=== PATIENT | male | born 1970 | race Caucasian/White ===

== ENCOUNTER 2021-05-14 17:34 | Inpatient (IN) ==
--- NOTE | 2021-05-14 18:28 | Emergency Department Note ---
Extremity Problem HPI <Philomena Botello PA-C - Last Filed: 05/14/21 20:58> General Chief complaint: Extremity Problem,Nontraumatic Stated complaint: left calf pain Time Seen by Provider: 05/14/21 17:49 Source: patient Mode of arrival: ambulatory History of Present Illness HPI Narrative: 51-year-old male presents with persistent left lower extremity swelling, pain, and erythema x1 month. He had a knee x-ray on 04/25/21 that showed no significant osteoarthritis. He had a lower extremity venous duplex on 05/07/21 that was negative for VTE. A ruptured Ribera's cyst was noted. There was concern for cellulitis and the patient was placed on cephalexin. He's had no improvement. The left lower extremity pain and swelling was preceded by left knee pain and swelling. Patient reports that he has painful range of motion and difficulty with weightbearing due to pain. No previous surgeries to this knee. Patient karie so has a history of psoriasis, but reports that he was ruled out for psoriatic arthritis in the past. Of note, his CRP and sed rate were noted to be elevated on 04/25/2021 when he was initially evaluated for this. Related Data Home Medications Medication Instructions Recorded Confirmed ixekizumab 80 mg/mL subcutaneous mg SUBCUT 04/25/21 04/25/21 auto-injector (Taltz Autoinjector) Previous Rx's Medication Instructions Recorded naproxen 500 mg tablet 500 mg PO Q12H PRN #30 tab 04/25/21 cephalexin 500 mg capsule 500 mg PO Q6H #28 cap 05/07/21 Allergies Allergy/AdvReac Type Severity Reaction Status Date / Time No Known Drug Allergies Allergy Verified 05/14/21 17:34 Review of Systems <Philomena Botello PA-C - Last Filed: 05/14/21 20:58> ROS ROS Narrative: Narrative: All systems ED: reviewed and negative except as stated. PFSH <Philomena Botello PA-C - Last Filed: 05/14/21 20:58> Narrative Patient History Narrative: Narrative: Medical/Surgical/Family History All Active Problems Cellulitis (Acute) History of psoriasis (Acute) Knee pain, left (Acute) Pneumonia (Acute) Viral syndrome (Acute) Pharyngitis (Acute) Shortness of breath (Acute) Thoracic back pain (Acute) Medical History Amputation of right hand History of psoriasis Knee pain, left Pharyngitis Pneumonia Shortness of breath Viral syndrome Social History Smoking Status: Former smoker Alcohol Intake Frequency: does not drink Substance Use: does not use Exam <Philomena Botello PA-C - Last Filed: 05/14/21 20:58> Narrative Narrative: General: AOx3, NAD, nontoxic appearing. Pleasant and conversant. HEENT: PERRL, EOMI, normocephalic. Moist mucous membranes. Chest: Symmetric, no pain to palpation Respiratory: Lungs clear to auscultation bilaterally. No respiratory distress. Unlabored breathing. Heart: Regular rate and rhythm, no murmurs/clicks/rubs. Extremities: Warm and well perfused. Left lower extremity swelling with indurated area to the medial proximal gastroc and associated erythema. It is painful to palpation and warm to the touch. DP 2+ bilaterally. No venous stasis. He has a small left knee joint effusion. Neuro: No focal deficits. Cranial nerves II-XII grossly normal. Skin: Warm dry, no rashes or lesions, no cyanosis. Psych: Normal mood and affect Heme/Lymph: No abnormal bruising Course <Philomena Botello PA-C - Last Filed: 05/14/21 20:58> Course Course Narrative: 51-year-old male presents for failed outpatient antibiotics for left lower extre mity cellulitis. Reevaluation(s) Reevaluation #1: Obtain basic labs, repeat his CRP and sed rate Joint aspiration and send fluid for culture and cell count Obtain CT of the left lower extremity to query fluid collection, possible abscess Start IV vancomycin and Zosyn Reevaluation #2: CT of the left lower extremity shows a 12 cm x 6 cm fluid collection in the medial gastrocnemius. Cell counts are pending Laboratory markers have increased significantly with CRP 2.1-->13 and ESR 22-->79 Patient has elevated white blood cell count of 12,200 Reevaluation #3: I spoke with Dr. Tobar, and he agrees that the patient should be started empirically on antibiotics and request that I order a ultrasound-guided aspiration of the LLE fluid collection tomorrow. Depending on synovial fluid analysis, he may need washout of the knee joint. He is asking to make him n.p.o. after midnight. There are no [facility] beds available tonight, so we will keep him in the ER and consult the hospitalist tomorrow for admission once a bed is available. I have ordered an ultrasound-guided aspiration. Vital Signs Vital signs: Vital Signs Temperature 37.3 C H 05/14/21 17:35 Pulse Rate 102 H 05/14/21 17:35 Respiratory Rate 20 05/14/21 17:35 Blood Pressure 158/81 05/14/21 17:35 Pulse Oximetry (%) 97 05/14/21 17:35 Temperature 37.3 C H 05/14/21 17:35 Pulse Rate 97 H 05/15/21 00:31 Respiratory Rate 20 05/14/21 17:35 Blood Pressure 120/72 05/15/21 00:31 Pulse Oximetry (%) 81 L 05/15/21 00:31 MDM <Philomena Botello PA-C - Last Filed: 05/14/21 20:58> [facility] Narrative Medical decision making narrative: Left lower extremity cellulitis, failed outpatient antibiotics The patient will remain in the ER tonight for IV antibiotics and n.p.o. after midnight for possible washout of his knee joint versus I&D of his left lower extremity fluid collection tomorrow. Ultrasound-guided aspiration has been ordered for tomorrow morning. Synovial fluid analysis and Gram stain is pending. Dr. Tobar has requested that the hospitalist admit once bed becomes available tomorrow morning. I signed the patient out to Dr. Jeffers. Please see his note for further details and plan of care. Lab Data Result diagrams: 05/14/21 18:06 Labs: Lab Results 05/14/21 05/14/21 05/14/21 Range/Units 18:06 18:06 18:06 WBC 12.2 H (4.5-11.0) K/mcL RBC 4.63 (4.63-6.08) M/mcL Hgb 13.3 L (13.7-17.5) g/dL Hct 40.9 (40.1-51.0) % MCV 88.3 (80.0-100.0) fL MCH 28.7 (26.0-34.0) pg MCHC 32.5 (31.0-36.0) g/dL RDW 13.1 (11.5-14.5) % Plt Count 348 (140-440) K/mcL MPV 10.0 (7.4-10.4) fL Seg Neutrophils % 77 (38-78) % Lymphocytes % 14 L (15-49) % Monocytes % (Manual) 8 (1-12) % Eosinophils % (Manual) 1 (0-7) % Platelet Estimate Normal (Normal) RBC Morphology Normal (Normal) ESR 79 H (0-20) mm/hr C-Reactive Protein 13.20 H (0.03-0.80) mg/dL Fluid Crystals (None Seen) Synovial Source Synovial Color Synovial Appearance Synovial Nuc Cells /cumm Synovial Neutrophils (0-25) % Synovial Lymphocytes % Synovial Other Cells % 05/14/21 05/14/21 Range/Units 18:19 20:01 WBC (4.5-11.0) K/mcL RBC (4.63-6.08) M/mcL Hgb (13.7-17.5) g/dL Hct (40.1-51.0) % MCV (80.0-100.0) fL MCH (26.0-34.0) pg MCHC (31.0-36.0) g/dL RDW (11.5-14.5) % Plt Count (140-440) K/mcL MPV (7.4-10.4) fL Seg Neutrophils % (38-78) % Lymphocytes % (15-49) % Monocytes % (Manual) (1-12) % Eosinophils % (Manual) (0-7) % Platelet Estimate (Normal) RBC Morphology (Normal) ESR (0-20) mm/hr C-Reactive Protein (0.03-0.80) mg/dL Fluid Crystals None seen (None Seen) Synovial Source Left knee Synovial Color Red Synovial Appearance Cloudy Synovial Nuc Cells 04698 /cumm Synovial Neutrophils 89 H (0-25) % Synovial Lymphocytes 4 % Synovial Other Cells 7 % Discharge Plan Patient/Caregiver Discharge Instructions Pt seen by BLOCK TRIMMER/PA only: No Patient Disposition: Still a Patient Condition: Fair Follow up with: Hawa Seymour PA-C [Primary Care Provider] - Prescriptions: No Action Taltz Autoinjector 80 mg/mL auto-injector subcut 0RF naproxen 500 mg tablet 500 mg PO Q12H PRN (Reason: pain) Qty: 30 0RF Rx Instructions: administer with food or milk cephalexin 500 mg capsule 500 mg PO Q6H Qty: 28 0RF
[2021-05-14 18:41] LABS: Hematocrit 40.9 % (40.1-51.0); Hemoglobin 13.3 g/dL (13.7-17.5); Mean Cell Volume 88.3 fL (80.0-100.0); Mean Corpuscular HGB Conc 32.5 g/dL (31.0-36.0); Platelet Count 348 K/mcL (140-440); RBC 4.63 M/mcL (4.63-6.08); Red Cell Distribution Width 13.1 % (11.5-14.5); WBC 12.2 K/mcL (4.5-11.0)
--- NOTE | 2021-05-14 18:52 | Cat Scan Report ---
CLINICAL INFORMATION: Erythematous lower leg COMPARISON: None TECHNIQUE: 0.625 mm axial slices were obtained from the distal one third of the femur through the catheter including the foot and ankle.. 2.5 mm Sagittal, coronal and axial reformatted images were processed and reviewed at bone and soft tissue tissue windows. Leak The exam was performed using radiation dose optimization techniques including, but not limited to, automated exposure control, adjustment of the mA and/or kV according to patient size and use of iterative reconstruction technique. FINDINGS: There is no evidence of osteomyelitis or other osseous abnormality. Small effusion is noted in the patellofemoral joint. There is mild degenerative change in the medial compartment of tibiofemoral joint. Joint spaces of the ankle and feet are unremarkable. A large (6.2 x 12 cm) fluid collection is seen adjacent to proximal medial gastrocnemius deep to the investing fascia. Minimal wispy high attenuation inferiorly within this region may represent resolving hematoma. Muscle and fascial planes are otherwise normal. IMPRESSION: 1. 12 x 6 cm fluid collection in the upper medial calf adjacent to the medial gastrocnemius and deep to the investing fascia. This could represent a resolving hematoma. 2. Small effusion in the patellofemoral joint Interpreted and Authenticated by: David Hunt 05/14/21
[2021-05-14 19:27] LABS: Eosinophils % (Manual) 1 % (0-7); Lymphocytes % 14 % (15-49); Monocytes % (Manual) 8 % (1-12); Platelet Estimate NORMAL (Normal); RBC Morphology NORMAL (Normal); Segmented Neutrophils % 77 % (38-78)
[2021-05-14] MEDS ORDERED: VANCOMYCIN 2,000 MG in 0.9 % SODIUM CHLORIDE 500 ML IV ONE (20:10)
[2021-05-14] MEDS ORDERED: PIPERACILLIN SODIUM/TAZOBACTAM 3.375 GM in DEXTROSE 5% IN WATER 50 ML IV ONE (20:39)
[2021-05-14 21:28] LABS: Appearance,Synovial Fluid Cloudy; Color,Synovial Fluid Red; Lymphocytes,Synovial Fluid 4 %; Neutrophils,Synovial Fluid 89 % (0-25); Nucleated Cells,Synovial Fld 13838 /cumm; Other Cells,Synovial Fluid 7 %
--- NOTE | 2021-05-14 22:38 | Emergency Department Note ---
Course Vital Signs Vital signs: Vital Signs Temperature 37.3 C H 05/14/21 17:35 Pulse Rate 102 H 05/14/21 17:35 Respiratory Rate 20 05/14/21 17:35 Blood Pressure 158/81 05/14/21 17:35 Pulse Oximetry (%) 97 05/14/21 17:35 Temperature 37.3 C H 05/14/21 17:35 Pulse Rate 97 H 05/15/21 00:31 Respiratory Rate 20 05/14/21 17:35 Blood Pressure 120/72 05/15/21 00:31 Pulse Oximetry (%) 81 L 05/15/21 00:31 MDM MDM Narrative Medical decision making narrative: Narrative:Patient seen and evaluated by VANESSA who also consulted with orthopedics please refer to the APPnote For full details. Signed out to me while boarding in the ED tonight Knee arthrocentesis fluid shows Preliminary Gram stain no organism but does show moderate polys Fluid analysis does show red cloudy appearing fluid with 13,000 cells 89 % neutrophils He is already n.p.o. at midnight, he is already received broad-spectrum antibiotics and is waiting admission in the morning as well as a fine-needle guided aspiration of his calf and orthopedic evaluation for possible I&D and/or washout of calf / knee Continue current mgt. Will be signed out to Dr. Perez Lab Data Result diagrams: 05/14/21 18:06 Labs: Lab Results 05/14/21 05/14/21 05/14/21 Range/Units 18:06 18:06 18:06 WBC 12.2 H (4.5-11.0) K/mcL RBC 4.63 (4.63-6.08) M/mcL Hgb 13.3 L (13.7-17.5) g/dL Hct 40.9 (40.1-51.0) % MCV 88.3 (80.0-100.0) fL MCH 28.7 (26.0-34.0) pg MCHC 32.5 (31.0-36.0) g/dL RDW 13.1 (11.5-14.5) % Plt Count 348 (140-440) K/mcL MPV 10.0 (7.4-10.4) fL Seg Neutrophils % 77 (38-78) % Lymphocytes % 14 L (15-49) % Monocytes % (Manual) 8 (1-12) % Eosinophils % (Manual) 1 (0-7) % Platelet Estimate Normal (Normal) RBC Morphology Normal (Normal) ESR 79 H (0-20) mm/hr C-Reactive Protein 13.20 H (0.03-0.80) mg/dL Fluid Crystals (None Seen) Synovial Source Synovial Color Synovial Appearance Synovial Nuc Cells /cumm Synovial Neutrophils (0-25) % Synovial Lymphocytes % Synovial Other Cells % 05/14/21 05/14/21 Range/Units 18:19 20:01 WBC (4.5-11.0) K/mcL RBC (4.63-6.08) M/mcL Hgb (13.7-17.5) g/dL Hct (40.1-51.0) % MCV (80.0-100.0) fL MCH (26.0-34.0) pg MCHC (31.0-36.0) g/dL RDW (11.5-14.5) % Plt Count (140-440) K/mcL MPV (7.4-10.4) fL Seg Neutrophils % (38-78) % Lymphocytes % (15-49) % Monocytes % (Manual) (1-12) % Eosinophils % (Manual) (0-7) % Platelet Estimate (Normal) RBC Morphology (Normal) ESR (0-20) mm/hr C-Reactive Protein (0.03-0.80) mg/dL Fluid Crystals None seen (None Seen) Synovial Source Left knee Synovial Color Red Synovial Appearance Cloudy Synovial Nuc Cells 15436 /cumm Synovial Neutrophils 89 H (0-25) % Synovial Lymphocytes 4 % Synovial Other Cells 7 % Discharge Plan Patient/Caregiver Discharge Instructions Pt seen by RISK MANAGEMENT CONSULTANT/PA only: No Patient Disposition: Still a Patient Condition: Fair Follow up with: Hawa Seymour PAMunaC [Primary Care Provider] - Prescriptions: No Action Taltz Autoinjector 80 mg/mL auto-injector subcut 0RF naproxen 500 mg tablet 500 mg PO Q12H PRN (Reason: pain) Qty: 30 0RF Rx Instructions: administer with food or milk cephalexin 500 mg capsule 500 mg PO Q6H Qty: 28 0RF
[2021-05-15] MEDS ORDERED: VANCOMYCIN PER PHARMACY IV ONE ×2 (02:52→15:10)
[2021-05-15] MEDS: PIPERACILLIN SODIUM/TAZOBACTAM 3.375 GM in DEXTROSE 5% IN WATER 50 ML IV SCH ×2 (03:58→10:15)
--- NOTE | 2021-05-15 06:38 | Orthopedic Consult Note ---
HPI Data of Consult Consult date: 05/15/21 Primary Care Provider: Hawa Seymour PA-C Consult Narrative Patient Information: Note initiated : 05/15/21 at 6:34 am Service Date, if different from initiated Date: [] Patient: Maged Bennett 51 y/o M admitted on for left calf pain. Chief Complaint: [Left leg pain, abscess ] Chief complaint: left lower leg pain, abscess cc:: CC: Review of Systems All systems: reviewed and no additional remarkable complaints except as stated PFSH PFSH All Active Problems Cellulitis (Acute) History of psoriasis (Acute) Knee pain, left (Acute) Pneumonia (Acute) Viral syndrome (Acute) Pharyngitis (Acute) Shortness of breath (Acute) Thoracic back pain (Acute) Medical History Amputation of right hand History of psoriasis Knee pain, left Pharyngitis Pneumonia Shortness of breath Viral syndrome Social History alcohol intake frequency: does not drink substance use type: does not use MEDS/ALLERGIES Home Medications and Allergies Home Medications Medication Instructions Recorded Confirmed Type ixekizumab 80 mg/mL subcutaneous mg SUBCUT 04/25/21 04/25/21 History auto-injector (Taltz Autoinjector) naproxen 500 mg tablet 500 mg PO Q12H PRN #30 tab 04/25/21 04/25/21 Rx cephalexin 500 mg capsule 500 mg PO Q6H #28 cap 05/07/21 Rx Allergies Allergy/AdvReac Type Severity Reaction Status Date / Time No Known Drug Allergies Allergy Verified 05/14/21 17:34 Physical Examination Narrative Narrative: Narrative: A/P Narrative A/P Narrative: Patient is a 51 yo male local resident employed by [employer] under the care of primary Jazz Felix with 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 He was previously seen and evaluated on Apr 06 and received a LLE venous US which resulted negative for DVT but demonstrated a possible ruptured bakers cyst. He denies SOB, chest pain, N+V, change in bowel habits. He does endorse mild subjective fever. Workup at this visit to the [facility] ED included left knee aspiration, LLE CT w/o contrast and blood work. [place]throcentesis [place] [address] and 89% neutrophils. CBC is remarkable for WBC of 12.2 and CRP of 13 and ESR of 79. CT revealed a fluid collection medial to left gastroc muscle. He has also been started on vancomycin and Zosyn empirically. US guided percutaneous drainage of LLE fluid collection has been ordered. On exam patient is resting comfortably in ER bed. He is arousable cooperative and answers questions appropriately. Heart is normal rate and rhythm, lungs are equal and clear bilat. Head, neck, chest, abd are non tender to palpation. At the LLE there is tenderness, moderate swelling at the lower calf and a mild knee joint effusion. Plan at this time depending on further lab and radiology workup is for possible arthroscopic washout of the left knee adn also possible I+D of LLE fluid collection. This plan was discussed with the patient and his questions were answered, he verbalizes understanding. Time Spent With Patient Time: Total time spent is greater than 50% in coordination of care (as documented) at patient's floor/unit and/or counseling patient:
--- NOTE | 2021-05-15 09:53 | Emergency Department Note ---
Course Course Course Narrative: I assumed care from Dr. Jeffers at the change of shift. I evaluated the patient in person at 8:30 AM. He has mild tenderness to palpation of his lower left leg. He has slightly limited range of motion at the knee Vital Signs Vital signs: Vital Signs Temperature 99.1 F H 05/14/21 17:35 Pulse Rate 102 H 05/14/21 17:35 Respiratory Rate 20 05/14/21 17:35 Blood Pressure 158/81 05/14/21 17:35 Pulse Oximetry (%) 97 05/14/21 17:35 Temperature 97.4 F 05/15/21 10:28 Pulse Rate 81 05/15/21 12:31 Respiratory Rate 20 05/14/21 17:35 Blood Pressure 122/70 05/15/21 12:31 Pulse Oximetry (%) 95 05/15/21 12:31 MDM MDM Narrative Medical decision making narrative: Narrative: Lab Data Result diagrams: 05/14/21 18:06 Labs: Lab Results 05/14/21 05/14/21 05/14/21 Range/Units 18:06 18:06 18:06 WBC 12.2 H (4.5-11.0) K/mcL RBC 4.63 (4.63-6.08) M/mcL Hgb 13.3 L (13.7-17.5) g/dL Hct 40.9 (40.1-51.0) % MCV 88.3 (80.0-100.0) fL MCH 28.7 (26.0-34.0) pg MCHC 32.5 (31.0-36.0) g/dL RDW 13.1 (11.5-14.5) % Plt Count 348 (140-440) K/mcL MPV 10.0 (7.4-10.4) fL Seg Neutrophils % 77 (38-78) % Lymphocytes % 14 L (15-49) % Monocytes % (Manual) 8 (1-12) % Eosinophils % (Manual) 1 (0-7) % Platelet Estimate Normal (Normal) RBC Morphology Normal (Normal) ESR 79 H (0-20) mm/hr C-Reactive Protein 13.20 H (0.03-0.80) mg/dL Fluid Crystals (None Seen) Synovial Source Synovial Color Synovial Appearance Synovial Tot Cell Ct Synovial Nuc Cells /cumm Synovial Neutrophils (0-25) % Synovial Lymphocytes % Synovial Other Cells % Synovial Diff Comment 05/14/21 05/14/21 05/15/21 Range/Units 18:19 20:01 10:15 WBC (4.5-11.0) K/mcL RBC (4.63-6.08) M/mcL Hgb (13.7-17.5) g/dL Hct (40.1-51.0) % MCV (80.0-100.0) fL MCH (26.0-34.0) pg MCHC (31.0-36.0) g/dL RDW (11.5-14.5) % Plt Count (140-440) K/mcL MPV (7.4-10.4) fL Seg Neutrophils % (38-78) % Lymphocytes % (15-49) % Monocytes % (Manual) (1-12) % Eosinophils % (Manual) (0-7) % Platelet Estimate (Normal) RBC Morphology (Normal) ESR (0-20) mm/hr C-Reactive Protein (0.03-0.80) mg/dL Fluid Crystals None seen (None Seen) Synovial Source Left knee TNP Synovial Color Red TNP Synovial Appearance Cloudy TNP Synovial Tot Cell Ct TNP Synovial Nuc Cells 82995 TNP /cumm Synovial Neutrophils 89 H TNP (0-25) % Synovial Lymphocytes 4 TNP % Synovial Other Cells 7 TNP % Synovial Diff Comment TNP ED POC Tests ED POC Tests: GANESH - SARS Antigen Negative Discharge Plan Patient/Caregiver Discharge Instructions Pt seen by SCHOOL COUNSELOR/PA only: No Clinical Impression: Cellulitis of knee, left Patient Disposition: Xfer As Inpt ([facility]) Condition: Fair Follow up with: Hawa Seymour PAMunaC [Primary Care Provider] - Prescriptions: No Action Taltz Autoinjector 80 mg/mL auto-injector subcut 0RF naproxen 500 mg tablet 500 mg PO Q12H PRN (Reason: pain) Qty: 30 0RF Rx Instructions: administer with food or milk cephalexin 500 mg capsule 500 mg PO Q6H Qty: 28 0RF
--- NOTE | 2021-05-15 10:51 | Ultrasound Report ---
Ultrasound-guided drainage of fluid collection in the medial calf Clinical history: Spontaneous postoperative fluid collection developing over the medial gastrocnemius. Mild erythema Technique: The procedure and risks including possibility of bleeding, infection and inadequate tissue sampling were explained to the patient. The understood and wished to proceed. The lesion was first internet researcher localized. The skin overlying the lesion was marked, prepped and locally anesthetized with 1% lidocaine using a 25-gauge needle. 18-gauge Yueh needle was placed under sonographic guidance into the fluid. Approximately 15 cc of hemorrhagic fluid was aspirated and sent for cell count and culture. Because viscosity of the blood, could only be partially drained. Postprocedure scanning shows the volume of the fluid collection approximately one half of the preprocedure volume. Post procedure scanning shows no complication. Patient tolerated procedure well. IMPRESSION: Partial percutaneous drainage of 12 cm hematoma in the medial calf overlying the medial gastrocnemius. Fluid was sent for cell count, culture and sensitivity. This should resolve with conservative therapy Interpreted and Authenticated by: David Hunt 05/15/21
--- NOTE | 2021-05-15 14:31 | Emergency Department Note ---
ED Note Addendum Note Addendum: I spoke with Dr. Maria regarding this patient's disposition. The plan is to admit him for IV antibiotics and orthopedics will consult regarding further evaluation of his left lower extremity cellulitis and possible need for I&D. Dr. Tobar is aware the patient is being admitted.
--- NOTE | 2021-05-15 14:57 | Internal Med History&Physical ---
HPI History of Present Illness Patient information: Note initiated : 05/15/21 at 2:54 pm Service Date, if different from initiated Date: [] Patient: Maged Bennett a 51 y/o M admitted on for left calf pain. Chief Complaint: [] Chief complaint: Left leg pain and redness History of present illness: Mr. Bennett is a 51 year old male with a history of psoriasis treated with Ixekizumab injections who presented to the ED for left calf pain. The patient says that he has been having redness and edema in his left calf for about 4 weeks. He has recently been on a course of Keflex which does not seem to have made any difference. The patient has been seen for this complaint in urgent care and the emergency department. In the ED, the patient had an aspiration of his left knee for which there were 13,838 nucleated cells with 89% neutrophils. The patient was also found to have a left calf fluid collection that was drained by radiology. The patient presented to the emergency department, the impression was that it was a hematoma in the medial calf overlying the medial gastrocnemius muscle. The patient was given vancomycin and Zosyn in the emergency department. Hospital medicine was consulted for admission. Review of system Constitutional: no fever, fatigue, or weight loss Eyes: no vision changes or pain Cardiovascular: no chest pain, no palpitations Respiratory: no cough or dyspnea Gastrointestinal: no abdominal pain, no nausea, vomiting, or diarrhea Genitourinary: no dysuria or difficulty voiding Musculoskeletal: Positive for left calf pain and left knee pain Integumentary: Positive for left calf warmth and redness Neurological: no focal weakness or numbness Psychiatric: no anxiety or depression Physical exam Head: Atraumatic, normal inspection. Eyes: normal appearance, no scleral icterus. Neck: full ROM Respiratory: no respiratory distress. Cardiovascular: normal rate and rhythm, S1, S2. GI/Abdominal: soft, nontender, no guarding. Extremities: Left calf edema, left knee tenderness to passive and active movement Neurological: CN II-XII intact, intact motor, intact sensation. Psychiatric: normal mood. Skin: Left Foot warmth and redness suggestive of cellulitis PFSH PFSH All Active Problems (Updated 05/15/21 @ 14:13 by Shade Perez DO) Cellulitis (Acute) Cellulitis of knee, left (Acute) History of psoriasis (Acute) Knee pain, left (Acute) Pneumonia (Acute) Viral syndrome (Acute) Pharyngitis (Acute) Shortness of breath (Acute) Thoracic back pain (Acute) Medical History Amputation of right hand History of psoriasis Knee pain, left Pharyngitis Pneumonia Shortness of breath Viral syndrome Social History alcohol intake frequency: does not drink substance use type: does not use MEDS/ALLERGIES Home Medications and Allergies Home Medications Medication Instructions Recorded Confirmed Type ixekizumab 80 mg/mL subcutaneous mg SUBCUT 04/25/21 04/25/21 History auto-injector (Taltz Autoinjector) naproxen 500 mg tablet 500 mg PO Q12H PRN #30 tab 04/25/21 05/15/21 Rx cephalexin 500 mg capsule 500 mg PO Q6H #28 cap 05/07/21 05/15/21 Rx Allergies Allergy/AdvReac Type Severity Reaction Status Date / Time No Known Drug Allergies Allergy Verified 05/14/21 17:34 EXAM Constitutional Vitals: Temp Pulse Resp BP Pulse Ox 97.4 F 80 20 134/66 96 05/15/21 10:28 05/15/21 14:32 05/14/21 17:35 05/15/21 14:01 05/15/21 14:32 DATA Data Completed and Pending Labs: Labs from last 24 hours 05/15/21 05/15/21 05/14/21 10:15 10:15 20:01 WBC RBC Hgb Hct MCV MCH MCHC RDW Plt Count MPV Seg Neutrophils % Lymphocytes % Monocytes % (Manual) Eosinophils % (Manual) Platelet Estimate RBC Morphology ESR C-Reactive Protein Fluid Source Pending Fluid Color Pending Fluid Appearance Pending Fluid RBC Pending Fluid Nucleated Cells Pending Fluid Crystals None seen Synovial Source TNP Synovial Color TNP Synovial Appearance TNP Synovial Tot Cell Ct TNP Synovial Nuc Cells TNP Synovial Neutrophils TNP Synovial Lymphocytes TNP Synovial Other Cells TNP Synovial Diff Comment TNP 05/14/21 05/14/21 05/14/21 18:19 18:06 18:06 WBC 12.2 H RBC 4.63 Hgb 13.3 L Hct 40.9 MCV 88.3 MCH 28.7 MCHC 32.5 RDW 13.1 Plt Count 348 MPV 10.0 Seg Neutrophils % 77 Lymphocytes % 14 L Monocytes % (Manual) 8 Eosinophils % (Manual) 1 Platelet Estimate Normal RBC Morphology Normal ESR 79 H C-Reactive Protein Fluid Source Fluid Color Fluid Appearance Fluid RBC Fluid Nucleated Cells Fluid Crystals Synovial Source Left knee Synovial Color Red Synovial Appearance Cloudy Synovial Tot Cell Ct Synovial Nuc Cells 35294 Synovial Neutrophils 89 H Synovial Lymphocytes 4 Synovial Other Cells 7 Synovial Diff Comment 05/14/21 18:06 WBC RBC Hgb Hct MCV MCH MCHC RDW Plt Count MPV Seg Neutrophils % Lymphocytes % Monocytes % (Manual) Eosinophils % (Manual) Platelet Estimate RBC Morphology ESR C-Reactive Protein 13.20 H Fluid Source Fluid Color Fluid Appearance Fluid RBC Fluid Nucleated Cells Fluid Crystals Synovial Source Synovial Color Synovial Appearance Synovial Tot Cell Ct Synovial Nuc Cells Synovial Neutrophils Synovial Lymphocytes Synovial Other Cells Synovial Diff Comment Preliminary micro results at discharge 05/15/21 10:15 Gram Stain - Preliminary Aspirate - Left Leg Body Fluid Culture - Preliminary 05/14/21 18:19 Gram Stain - Preliminary Synovial Fluid - Knee Body Fluid Culture - Preliminary A/P Narrative A/P Narrative: Assessment: 51-year-old male with a history of psoriasis treated with Ixekizumab injections admitted for left calf cellulitis, left calf hematoma possibly infected. The patient also had left knee pain for which an arthrocentesis was performed, cell count was 13,838 with 89% neutrophils. #Cellulitis of left calf #Left calf fluid collection, probably hematoma (infected?) #Concern for possible left knee septic arthritis #Psoriasis treated with Ixekizumab #Obesity BMI 33 Plan -Vancomycin and ceftriaxone for now. -Follow knee, left calf fluid collection aspiration and blood cultures. -Follow cell count of the left calf fluid collection. -Orthopedic surgery following. -Hold Ixekizumab. -Regular diet, NPO after midnight. -DVT ppx: Lovenox -Code status: Supervisor Cell Operation Spent With Patient Time: Total time spent is greater than 50% in coordination of care (as documented) at patient's floor/unit and/or counseling patient:
[2021-05-15] MEDS ORDERED: ONDANSETRON 4 MG/2 ML VIAL IV PRN (15:10)
[2021-05-15] MEDS ORDERED: ACETAMINOPHEN 325 MG TABLET PO PRN (15:10)
[2021-05-15] MEDS ORDERED: cefTRIAXone 2 GM in DEXTROSE 5% IN WATER 50 ML IV SCH (15:10)
[2021-05-15] MEDS ORDERED: VANCOMYCIN PER PHARMACY IV SCH (15:15)
[2021-05-15 15:35] LABS: Appearance, Body Fluid Turbid; Color, Body Fluid Red; Nucleated Cells,Body Fld 26403 /cumm
[2021-05-15] MEDS ORDERED: VANCOMYCIN 1,500 MG in 0.9 % SODIUM CHLORIDE 500 ML IV ONE (16:00)
[2021-05-15 16:14] LABS: Hematocrit 38.9 % (40.1-51.0); Hemoglobin 12.6 g/dL (13.7-17.5); Mean Cell Volume 88.6 fL (80.0-100.0); Mean Corpuscular HGB Conc 32.4 g/dL (31.0-36.0); Platelet Count 309 K/mcL (140-440); RBC 4.39 M/mcL (4.63-6.08); Red Cell Distribution Width 13.2 % (11.5-14.5); WBC 9.4 K/mcL (4.5-11.0)
[2021-05-15 16:41] LABS: ALT/SGPT 20 U/L (<40); AST/SGOT 15 U/L (<40); Albumin 3.3 gm/dL (3.2-5.2); Albumin/Globulin Ratio 0.7 (1.0-2.3); Alkaline Phosphatase 91 U/L (39-117); Bilirubin,Total 0.5 mg/dL (0.1-1.0); Blood Urea Nitrogen 15 mg/dL (6-20); Calcium 8.5 mg/dL (8.6-10.4); Carbon Dioxide 26 mmol/L (22-30); Chloride 100 mmol/L (96-108); Globulin 4.7 gm/dL (2.2-3.7); Glomerular Filtration Rate 102; Glucose 90 mg/dL (70-105)
[2021-05-15 16:43] LABS: Basophils % (Manual) 2 % (0-2); Eosinophils % (Manual) 2 % (0-7); Lymphocytes % 13 % (15-49); Monocytes % (Manual) 3 % (1-12); Platelet Estimate NORMAL (Normal); RBC Morphology NORMAL (Normal); Reactive Lymphocytes 2 % (0-2); Segmented Neutrophils % 78 % (38-78)
[2021-05-15] MEDS: cefTRIAXone 2 GM in DEXTROSE 5% IN WATER 50 ML IV SCH (17:20)
[2021-05-15] MEDS: DOCUSATE SODIUM 100 MG CAPSULE PO SCH (21:01)
[2021-05-15] MEDS: SENNOSIDES 1 TABLET PO SCH (21:02)
[2021-05-16] MEDS: VANCOMYCIN 1,500 MG in 0.9 % SODIUM CHLORIDE 500 ML IV SCH ×3 (00:04→21:41)
[2021-05-16] MEDS: 0.9 % SODIUM CHLORIDE 10 ML SYRINGE IV SCH ×4 (00:04→21:41)
[2021-05-16 06:26] LABS: Hematocrit 39.3 % (40.1-51.0); Hemoglobin 12.3 g/dL (13.7-17.5); Mean Cell Volume 89.7 fL (80.0-100.0); Mean Corpuscular HGB Conc 31.3 g/dL (31.0-36.0); Platelet Count 329 K/mcL (140-440); RBC 4.38 M/mcL (4.63-6.08); WBC 8.5 K/mcL (4.5-11.0)
[2021-05-16 06:54] LABS: ALT/SGPT 18 U/L (<40); AST/SGOT 15 U/L (<40); Albumin 3.1 gm/dL (3.2-5.2); Albumin/Globulin Ratio 0.7 (1.0-2.3); Alkaline Phosphatase 86 U/L (39-117); Bilirubin,Total 0.4 mg/dL (0.1-1.0); Blood Urea Nitrogen 13 mg/dL (6-20); Calcium 8.7 mg/dL (8.6-10.4); Carbon Dioxide 24 mmol/L (22-30); Chloride 102 mmol/L (96-108); Globulin 4.7 gm/dL (2.2-3.7); Glomerular Filtration Rate 102; Glucose 120 mg/dL (70-105)
[2021-05-16 08:35] LABS: Band Neutrophils % 3 % (0-10); Basophils % (Manual) 1 % (0-2); Eosinophils % (Manual) 5 % (0-7); Lymphocytes % 19 % (15-49); Monocytes % (Manual) 9 % (1-12); Platelet Estimate NORMAL (Normal); RBC Morphology NORMAL (Normal); Segmented Neutrophils % 63 % (38-78)
[2021-05-16] MEDS: ENOXAPARIN 40 MG/0.4 ML SYRINGE SQ SCH (08:35)
[2021-05-16] MEDS: DOCUSATE SODIUM 100 MG CAPSULE PO SCH ×2 (08:37→21:41)
[2021-05-16] MEDS: cefTRIAXone 2 GM in DEXTROSE 5% IN WATER 50 ML IV SCH (08:46)
--- NOTE | 2021-05-16 13:48 | Orthopedic History & Physical ---
HPI History of Present Illness Patient information: Note initiated : 05/16/21 at 1:47 pm Service Date, if different from initiated Date: [] Patient: Maged Bennett a 51 y/o M admitted on 05/15/21 for left calf pain. Chief Complaint: left leg pain, abscess lower calf[] Chief complaint: left leg pain, abscess lower calf History of present illness: Mr. Bennett is a 51 year old male with a history of psoriasis treated with Ixek izumab injections who presented to the ED for left calf pain. The patient says that he has been having redness and edema in his left calf for about 4 weeks. He has recently been on a course of Keflex which does not seem to have made any difference. The patient has been seen for this complaint in urgent care and the emergency department. In the ED, the patient had an aspiration of his left knee for which there were 13,838 nucleated cells with 89% neutrophils. The patient was also found to have a left calf fluid collection that was drained by radiology which also resulted elevated cell count. Cultures of aspirations have thus far returned no organisms or growth. The patient was given vancomycin and Zosyn in the emergency department. Hospital medicine was consulted for admission, and Dr. Tobar orthopedic surgeon was consulted for treatment. Review of system Constitutional: no fever, fatigue, or weight loss Eyes: no vision changes or pain Cardiovascular: no chest pain, no palpitations Respiratory: no cough or dyspnea Gastrointestinal: no abdominal pain, no nausea, vomiting, or diarrhea Genitourinary: no dysuria or difficulty voiding Musculoskeletal: Positive for left calf pain and left knee pain Integumentary: Positive for left calf warmth and redness Neurological: no focal weakness or numbness Psychiatric: no anxiety or depression Physical exam Head: Atraumatic, normal inspection. Eyes: normal appearance, no scleral icterus. Neck: full ROM Respiratory: no respiratory distress. Cardiovascular: normal rate and rhythm, S1, S2. GI/Abdominal: soft, nontender, no guarding. Extremities: Left calf edema, mild erythema, left knee tenderness to passive and active movement, mild left knee effusion. Neurological: CN II-XII intact, intact motor, intact sensation. Psychiatric: normal mood. Skin: Left Foot warmth and redness suggestive of cellulitis Review of Systems All systems: reviewed and no additional remarkable complaints except as stated PFSH PFSH All Active Problems Cellulitis (Acute) Cellulitis of knee, left (Acute) History of psoriasis (Acute) Knee pain, left (Acute) Pneumonia (Acute) Viral syndrome (Acute) Pharyngitis (Acute) Shortness of breath (Acute) Thoracic back pain (Acute) Medical History Amputation of right hand History of psoriasis Knee pain, left Pharyngitis Pneumonia Shortness of breath Viral syndrome Social History alcohol intake frequency: does not drink substance use type: does not use MEDS/ALLERGIES Home Medications and Allergies Home Medications Medication Instructions Recorded Confirmed Type ixekizumab 80 mg/mL subcutaneous mg SUBCUT 04/25/21 04/25/21 History auto-injector (Taltz Autoinjector) naproxen 500 mg tablet 500 mg PO Q12H PRN #30 tab 04/25/21 05/15/21 Rx cephalexin 500 mg capsule 500 mg PO Q6H #28 cap 05/07/21 05/15/21 Rx Allergies Allergy/AdvReac Type Severity Reaction Status Date / Time No Known Drug Allergies Allergy Verified 05/14/21 17:34 Physical Examination Narrative Narrative: Narrative: Results Labs Result Diagrams: 05/16/21 05:19 05/16/21 05:19 Labs: Abnormal lab results 05/15/21 05/15/21 05/16/21 Range/Units 15:26 15:31 05:19 RBC 4.39 L 4.38 L (4.63-6.08) M/mcL Hgb 12.6 L 12.3 L (13.7-17.5) g/dL Hct 38.9 L 39.3 L (40.1-51.0) % Lymphocytes % 13 L (15-49) % Glucose (70-105) mg/dL Calcium 8.5 L (8.6-10.4) mg/dL Albumin (3.2-5.2) gm/dL Globulin 4.7 H (2.2-3.7) gm/dL Albumin/Globulin Ratio 0.7 L (1.0-2.3) 05/16/21 Range/Units 05:19 RBC (4.63-6.08) M/mcL Hgb (13.7-17.5) g/dL Hct (40.1-51.0) % Lymphocytes % (15-49) % Glucose 120 H (70-105) mg/dL Calcium (8.6-10.4) mg/dL Albumin 3.1 L (3.2-5.2) gm/dL Globulin 4.7 H (2.2-3.7) gm/dL Albumin/Globulin Ratio 0.7 L (1.0-2.3) H & H 05/14/21 05/15/21 05/16/21 Range/Units 18:06 15:31 05:19 Hgb 13.3 L 12.6 L 12.3 L (13.7-17.5) g/dL Hct 40.9 38.9 L 39.3 L (40.1-51.0) % All other labs normal. A/P Narrative A/P Narrative: Assessment: 51 year old male with left knee and left calf infection and abscess. Plan: options were presented to the patient including non-surgical and surgical options. non surgical including watchful waiting and further antibiotic treatment carries the risks of further infection, sepsis and . Surgical option consisting of surgical open I+D of left calf abscess and arthroscopic assisted I+D of left knee to take place semi emergently with Dr. Ekaterina mcgraw and Desean CHAPMAN. At this time patient is interested in surgery. Plan is for surgical open I+D of left calf abscess and arthroscopic assisted I+D of left knee. Surgical risks were explained to the patient including but not limited to: pain, bleeding, infection, injury to adjacent structures, need for further surgery, stroke risk, cardiac complications, pulmonary complications, anesthesia reactions and . Patient understands these risks and wishes to proceed with surgery. Time Spent With Patient Time: Total time spent is greater than 50% in coordination of care (as documented) at patient's floor/unit and/or counseling patient:
--- NOTE | 2021-05-16 14:12 | Internal Med Progress Note ---
SUBJECTIVE Subjective Patient information: Note initiated : 05/16/21 at 2:12 pm Service Date, if different from initiated Date: [] Patient: Maged Bennett a 51 y/o M admitted on 05/15/21 for left calf pain. Chief Complaint: [] Interval history: Mr. Bennett is a 51 year old male with a history of psoriasis treated with Ixekizumab injections who presented to the ED for left calf pain. The patient says that he has been having redness and edema in his left calf for about 4 weeks. He has recently been on a course of Keflex which does not seem to have made any difference. The patient has been seen for this complaint in urgent care and the emergency department. In the ED, the patient had an aspiration of his left knee for which there were 13,838 nucleated cells with 89% neutrophils. The patient was also found to have a left calf fluid collection that was drained by radiology. The patient presented to the emergency department, the impression was that it was a hematoma in the medial calf overlying the medial gastrocnemius muscle. The patient was given vancomycin and Zosyn in the emergency department. Hospital medicine was consulted for admission. 05/16 Stable overnight, plan for today is for I&D of the calf fluid collection, likely abscess. Physical exam Head: Atraumatic, normal inspection. Eyes: normal appearance, no scleral icterus. Neck: full ROM Respiratory: no respiratory distress. Cardiovascular: normal rate and rhythm, S1, S2. GI/Abdominal: soft, nontender, no guarding. Extremities: Left calf edema, left knee tenderness to passive and active movement Neurological: CN II-XII intact, intact motor, intact sensation. Psychiatric: normal mood. Skin: Left Foot warmth and redness suggestive of cellulitis Constitutional Vitals: Vital Signs Temp Pulse Resp BP Pulse Ox 97.2 F 78 16 128/74 94 05/16/21 11:51 05/16/21 11:51 05/16/21 11:51 05/16/21 11:51 05/16/21 11:51 Period Temp Pulse Resp BP Sys/Lopez Pulse Ox Last 24 Hr 97.2 F-99.4 F 78-90 16-20 113-134/66-80 92-98 Intake and Output 05/16/21 05/16/21 05/16/21 05:59 13:59 21:59 Intake Total 0 1050 Balance 0 1050 Intake & Output: Intake & Output 05/16/21 05/16/21 05/16/21 05:59 13:59 21:59 Intake Total 0 1050 Balance 0 1050 Intake: IV 1050 Vancomycin 1,500 mg In Sodium 1000 Chloride 0.9% 500 ml @ 333.3 mls/hr IV Q12H [facility] Rx#: [id number] Rocephin 2 gm In Dextrose 5% in 50 Water 50 ml @ 100 mls/hr IV DAILY [facility] Rx#:[id number] Oral 0 OBJ DATA Labs CBC & Chem 7: 05/16/21 05:19 05/16/21 05:19 Labs: Abnormal Lab Results 05/16/21 05/16/21 05/15/21 05:19 05:19 15:31 WBC RBC 4.38 L 4.39 L Hgb 12.3 L 12.6 L Hct 39.3 L 38.9 L Lymphocytes % 13 L ESR Glucose 120 H Calcium C-Reactive Protein Albumin 3.1 L Globulin 4.7 H Albumin/Globulin Ratio 0.7 L Synovial Neutrophils 05/15/21 05/14/21 05/14/21 15:26 18:19 18:06 WBC RBC Hgb Hct Lymphocytes % ESR 79 H Glucose Calcium 8.5 L C-Reactive Protein Albumin Globulin 4.7 H Albumin/Globulin Ratio 0.7 L Synovial Neutrophils 89 H 05/14/21 05/14/21 18:06 18:06 WBC 12.2 H RBC Hgb 13.3 L Hct Lymphocytes % 14 L ESR Glucose Calcium C-Reactive Protein 13.20 H Albumin Globulin Albumin/Globulin Ratio Synovial Neutrophils Meds: Medications Acetaminophen (Acetaminophen 325 Mg Tablet) 650 mg PO Q6HP PRN; Protocol PRN Reason: Per Pain Protocol/Fever > 101 Docusate Sodium (Docusate Sodium 100 Mg Capsule) 100 mg PO BID [facility] Last Admin: 05/16/21 08:37 Dose: Not Given Documented by: Enoxaparin Sodium (Enoxaparin 40 Mg/0.4 Ml Syringe) 40 mg SQ DAILY [facility] Last Admin: 05/16/21 08:35 Dose: Not Given Documented by: Ceftriaxone Sodium 2 gm/ (Dextrose) 50 mls @ 100 mls/hr IV DAILY [facility]; Protocol Last Infusion: 05/16/21 13:28 Dose: Infused Documented by: Vancomycin HCl 1,500 mg/ (Sodium Chloride) 500 mls @ 333.3 mls/hr IV Q12H [facility] Last Infusion: 05/16/21 13:28 Dose: Infused Documented by: Ondansetron HCl (Ondansetron 4 Mg/2 Ml Vial) 4 mg IV Q6HP PRN PRN Reason: Nausea And Vomiting Senna (Sennosides 1 Tablet) 2 tab PO HS [facility] Last Admin: 05/15/21 21:02 Dose: Not Given Documented by: Sodium Chloride (0.9 % Sodium Chloride 10 Ml Syringe) 10 ml IV Q8 [facility] Last Admin: 05/16/21 14:11 Dose: Not Given Documented by: Vancomycin HCl (Vancomycin Per Pharmacy) 1 order IV UD [facility]; Protocol A/P Narrative A/P Narrative: Assessment: 51-year-old male with a history of psoriasis treated with Ixekizumab injections admitted for left calf cellulitis, left calf hematoma possibly infected. The patient also had left knee pain for which an arthrocentesis was performed, cell count was 13,838 with 89% neutrophils. #Cellulitis of left calf #Left calf fluid collection, probably abscess #Concern for possible left knee septic arthritis #Psoriasis treated with Ixekizumab #Obesity BMI 33 Plan -Vancomycin and ceftriaxone for now. -Follow knee, left calf fluid collection aspiration and blood cultures. -Follow cell count of the left calf fluid collection. -Orthopedic surgery following. -Hold Ixekizumab. -Regular diet, NPO after midnight. -DVT ppx: Lovenox -Code status: Slip Caster Spent With Patient Time: Total time spent is greater than 50% in coordination of care (as documented) at patient's floor/unit and/or counseling patient: QUALITY Stroke Symptom Onset Unknown: No VTE Deep Vein Thrombosis/Pulmonary Embolism Present on Admission: No
[2021-05-16] MEDS ORDERED: ePHEDrine 50 MG/5 ML SYRINGE (ANEST) IV ONE (14:28)
[2021-05-16] MEDS ORDERED: PROPOFOL 200 MG/20 ML VIAL IV ONE (14:28)
[2021-05-16] MEDS ORDERED: MIDAZOLAM 2 MG/2 ML VIAL ONE (14:28)
[2021-05-16] MEDS ORDERED: ONDANSETRON 4 MG/2 ML VIAL ONE (14:28)
[2021-05-16] MEDS ORDERED: LIDOCAINE HCL/PF 100 MG/5 ML SYRINGE IV ONE (14:28)
[2021-05-16] MEDS ORDERED: DEXAMETHASONE 10 MG/ML VIAL ONE (14:28)
[2021-05-16] MEDS ORDERED: GLYCOPYRROLATE 0.2 MG/ML VIAL IV ONE (14:28)
[2021-05-16] MEDS ORDERED: fentaNYL 100 MCG/2 ML VIAL IV ONE (14:28)
[2021-05-16] MEDS ORDERED: KETAMINE 50 MG/ML Syringe (ANEST) IV ONE (14:28)
[2021-05-16] MEDS ORDERED: fentaNYL 100 MCG/2 ML VIAL IV PRN (15:26)
[2021-05-16] MEDS ORDERED: BENZOCAINE/MENTHOL 1 LOZENGE PO PRN (15:26)
[2021-05-16] MEDS ORDERED: IPRATROPIUM/ALBUTEROL 3 ML AMPUL.NEB NEB PRN (15:26)
--- NOTE | 2021-05-16 15:42 | General Surgery Procedure Note ---
Date of procedure: Note initiated : 05/16/21 at 3:36 pm Service Date, if different from initiated Date: [] Pre-op diagnosis: left knee infection, calf abscess Post-op diagnosis: other (same with medial and lateral meniscus tear, osteoarthritis) Procedure: left knee arthroscopy with lavage for infection, partial medial and lateral meniscectomy, open irrigation and debridement of left calf Findings: infection calf and knee Anesthesia: GETA Surgeon: David Tobar Mathematics Professor: Charly Suggs Estimated blood loss: 50 Pathology: other Condition: stable Disposition: PACU
--- NOTE | 2021-05-16 15:48 | Discharge Plan ---
DC Instructions-General Patient Instructions Dressing Care: May shower in 2 days Discharge Plan Patient/Caregiver Discharge Instructions Activity: as per physical therapy Diet: Regular Diet Prescriptions: No Action Taltz Autoinjector 80 mg/mL auto-injector subcut 0RF naproxen 500 mg tablet 500 mg PO Q12H PRN (Reason: pain) Qty: 30 0RF Rx Instructions: administer with food or milk cephalexin 500 mg capsule 500 mg PO Q6H Qty: 28 0RF Follow Up Plan Follow up with: Hawa Seymour PA-C [Primary Care Provider] - David Tobar MD [Physician] - Patient Disposition: Home, Self-Care Prognosis: Fair Rehab Potential: Good I certify that the patient requires SNF services: No Overall status at discharge: patient is progressing back to baseline Discharge Orders: Discharge Order (Routine); Ordered 05/17/21 Ordered By: David Tobar Discharge Comment: cc: knee and calf infection s/p i and d
--- NOTE | 2021-05-16 16:50 | Operative Note ---
DATE OF OPERATION: 05/16/2021 PREOPERATIVE DIAGNOSES: 1. Infected left knee. 2. Calf abscess. POSTOPERATIVE DIAGNOSES: 1. Infected left knee. 2. Calf abscess. 3. Medial and lateral meniscus tear. 4. Osteoarthritis of the medial compartment. PROCEDURE: 1. Left knee arthroscopy with partial medial and lateral meniscectomy. 2. Left knee arthroscopy with extensive debridement and irrigation for infected knee. 3. Left calf irrigation and debridement of infected abscess. SURGEON: David Tobar M.D. [employer]OS SOFTWARE ENGINEER SURGEON: Desean Suggs PA-C. The PA's assistance was required for the safe and efficient completion of the entire case. This provider's expertise and technical skill were required throughout the case. The PA assisted with preoperative coordination, intraoperative positioning, limb manipulation, wound closure, dressing application, as well as post-operative documentation and care coordination. ANESTHESIA: General. ESTIMATED BLOOD LOSS: Minimal. COMPLICATIONS: None noted. SPECIMENS REMOVED: None DRAINS: None. EXAMINATION UNDER ANESTHESIA: Range of motion 0/0/130 degrees. Blanca's stable grade IA. Negative posterior drawer and pivot shift. Stable to varus and valgus stress. Patella stable with normal medial and lateral glide. INTRAOPERATIVE FINDINGS: 1. Large, purulent effusion in the left knee. 2. Radial tear at the mid body and posterior horn of the medial meniscus and mid body and posterior horn of the lateral meniscus. 3. 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 4. Large medial calf hematoma/abscess. It appeared to be infected in the junction between the deep posterior and superficial posterior compartments. IMPLANTS: None. INDICATIONS: The patient has a history of worsening pain, swelling and redness over the last month, which has progressively worsened. He has had the knee tapped as well as the calf abscess. They have come back at 13,000 and 26,000 cells with high neutrophil percentage. He has been on antibiotics and it has not improved, so we elected to proceed with the above surgical intervention. After a long discussion about treatment options, the patient elected to proceed with a knee arthroscopy and open I and D of calf wound. The risks and benefits were discussed with the patient in detail including, but not limited to, the risks of anesthesia, problems with the heart or lungs related to anesthesia, infection, compromise or injury to the nerves and blood vessels, deep venous thrombosis, pulmonary embolism, pneumonia, continued pain after surgery, worsening pain or symptoms after surgery, swelling, loss of motion, instability, and need for repeat surgery. DESCRIPTION OF PROCEDURE: The patient was seen in the pre-anesthesia waiting room where all questions were answered and the correct side and site were identified and marked. The patient was transferred to the operating room and administered the anesthetic and given pre-operative antibiotics. A timeout was then called. Examination under anesthesia was performed. Please see above notes for complete details. The leg was placed into a leg ortiz and the contralateral leg was placed in a padded stirrup brace. The extremity was prepped and draped, exsanguinated, and the tourniquet was inflated to 250 mmHg. Portal sites were pre-injected with 20 mL of 0.5% Marcaine without epinephrine. Standard anterior medial and lateral portals were created. The anterior-medial portal was created with a 10-blade and blunt trocar and the anterior-lateral portal was created using arthroscopic assistance with a spinal needle. A superior-lateral outflow portal was also created. Once the portals were created, a systematic examination of the knee was performed. The medial and lateral gutters were inspected and were normal in appearance. No loose bodies were noted. The trochlea and patella were also inspected and found to have a moderate amount of synovial proliferation. I removed all this in the suprapatellar pouch as well as the medial and lateral gutters. The patella sat normally within the trochlear groove. Next, we entered the medial compartment. The medial meniscus was probed on its superior and inferior surface from the posterior horn around to the anterior horn. We found radial tearing in the mid body and posterior horn of the medial meniscus. I debrided this using a combination of meniscal biter and motorized shaver. It was taken back to a stable base anterior and posterior, about 25% of the meniscus in this region. The cartilage surface of the medial compartment demonstrated areas of grade II-III chondromalacia with some unstable cartilage flaps. I debrided this with motorized shaver to a stable base. We next entered the notch after removing some of the anterior fat pad for better visualization. The anterior and posterior cruciate ligaments were identified, probed, and found to be normal in appearance. No other abnormalities were found in the notch. Next, we entered the lateral compartment. The lateral meniscus was probed on its superior and inferior surface from the posterior horn around to the anterior horn. We found radial tearing in the mid body and posterior horn of the lateral meniscus. It was unstable on probing. I debrided this with combination of meniscal biter and motorized shaver. It was taken back to a stable base anterior and posterior, about 20% meniscus in this region. The popliteal hiatus was inspected and found to be normal in appearance. The cartilage surface of the lateral compartment demonstrated no abnormalities. We again thoroughly irrigated using 12 liters of saline to remove all the tissue. We cleared out all the synovial tissue that appeared to be hypertrophied in all compartments. We then moved back up to the suprapatellar pouch. We thoroughly irrigated and removed all the arthroscopic debris, followed by the arthroscopic equipment. The portal sites were closed with an interrupted 4-0 nylon. A sterile pressure dressing was applied. The tourniquet was deflated. Attention was next turned towards the calf. I made a 6 cm incision along the posteromedial border of the tibia. We dissected down through skin and subcutaneous tissue and mobile window was created medially and laterally. We dissected down and then split the fascia in this region. We dissected down in between the deep posterior and superficial posterior compartment and there was a hunt of purulent-type fluid. I thoroughly irrigated and debrided this in detail. We used 9 liters of saline under jet lavage, followed by IrriSept. Once it was thoroughly evacuated and closed, I left the fascia open. We closed the subcutaneous layer with a 3-0 Monocryl and the skin was closed with annemarie. All needle and sponge counts were correct. The patient was transferred to the recovery room in stable condition. Bright Job ID: [id number] Doc ID: [id number] Phong Tobar MD
[2021-05-16] MEDS ORDERED: HYDROmorphone 0.5 MG/0.5 ML SYRINGE IV PRN (19:59)
[2021-05-16] MEDS: SENNOSIDES 1 TABLET PO SCH (21:40)
[2021-05-16] MEDS: HYDROcodone/APAP 5/325MG TABLET PO PRN (21:41)
[2021-05-17] MEDS: 0.9 % SODIUM CHLORIDE 10 ML SYRINGE IV SCH ×5 (05:57→21:07)
--- NOTE | 2021-05-17 06:50 | Orthopedic Progress Note ---
SUBJECTIVE Subjective Patient information: Note initiated : 05/17/21 at 6:44 am Service Date, if different from initiated Date: [] Patient: Maged Bennett 51 y/o M admitted on 05/15/21 for left calf pain. Chief Complaint: [left leg pain ] Principal diagnosis: s/p arthroscopic assisted I+D knee infection, I+D left calf abscess Pertinent ROS: 10 points reviewed and are negative except where mentioned Constitutional Vitals: Vital Signs Temp Pulse Resp BP Pulse Ox 98.3 F 76 18 118/78 96 05/17/21 03:50 05/17/21 03:50 05/17/21 03:50 05/17/21 03:50 05/17/21 03:50 Period Temp Pulse Resp BP Sys/Lopez Pulse Ox Last 24 Hr 97.2 F-98.6 F 76-116 14-25 112-160/63-101 89-100 Intake and Output 05/16/21 05/17/21 05/17/21 21:59 05:59 13:59 Intake Total 800 600 Output Total 700 550 Balance 100 50 Weight 211 lb 11.2 oz Intake & Output: Intake & Output 05/16/21 05/17/21 05/17/21 21:59 05:59 13:59 Intake Total 800 600 Output Total 700 550 Balance 100 50 Weight 211 lb 11.2 oz Intake: IV 500 Vancomycin 1,500 mg In Sodium 500 Chloride 0.9% 500 ml @ 333.3 mls/hr IV Q12H [facility] Rx#: [id number] Oral 100 IV - Manual Only 800 Output: Void Amount 650 550 Estimated Blood Loss 50 Other: Urine Appearance Clear Clear Urine Color Bright Yellow Bright Yellow Urine Odor Normal OBJ DATA Labs CBC & Chem 7: 05/16/21 05:19 05/16/21 05:19 Labs: Abnormal Lab Results 05/16/21 05/16/21 05/15/21 05:19 05:19 15:31 WBC RBC 4.38 L 4.39 L Hgb 12.3 L 12.6 L Hct 39.3 L 38.9 L Lymphocytes % 13 L ESR Glucose 120 H Calcium C-Reactive Protein Albumin 3.1 L Globulin 4.7 H Albumin/Globulin Ratio 0.7 L Synovial Neutrophils 05/15/21 05/14/21 05/14/21 15:26 18:19 18:06 WBC RBC Hgb Hct Lymphocytes % ESR 79 H Glucose Calcium 8.5 L C-Reactive Protein Albumin Globulin 4.7 H Albumin/Globulin Ratio 0.7 L Synovial Neutrophils 89 H 05/14/21 05/14/21 18:06 18:06 WBC 12.2 H RBC Hgb 13.3 L Hct Lymphocytes % 14 L ESR Glucose Calcium C-Reactive Protein 13.20 H Albumin Globulin Albumin/Globulin Ratio Synovial Neutrophils Meds: Medications Acetaminophen (Acetaminophen 325 Mg Tablet) 650 mg PO Q6HP PRN; Protocol PRN Reason: Per Pain Protocol/Fever > 101 Last Admin: 05/16/21 18:48 Dose: 650 mg Documented by: Hydrocodone Bitart/Acetaminophen (Hydrocodone/Apap 5/325mg Tablet) 1 tab PO Q4HP PRN; Protocol PRN Reason: Per Pain Protocol Last Admin: 05/16/21 21:41 Dose: 1 tab Documented by: Docusate Sodium (Docusate Sodium 100 Mg Capsule) 100 mg PO BID [facility] Last Admin: 05/16/21 21:41 Dose: 100 mg Documented by: Enoxaparin Sodium (Enoxaparin 40 Mg/0.4 Ml Syringe) 40 mg SQ DAILY [facility] Last Admin: 05/16/21 08:35 Dose: Not Given Documented by: Hydromorphone HCl (Hydromorphone 0.5 Mg/0.5 Ml Syringe) 0.5 mg IV Q4HP PRN; Protocol PRN Reason: Per Pain Protocol Ceftriaxone Sodium 2 gm/ (Dextrose) 50 mls @ 100 mls/hr IV DAILY [facility]; Protocol Last Infusion: 05/16/21 13:28 Dose: Infused Documented by: Vancomycin HCl 1,500 mg/ (Sodium Chloride) 500 mls @ 333.3 mls/hr IV Q12H [facility] Last Infusion: 05/16/21 23:15 Dose: Infused Documented by: Ondansetron HCl (Ondansetron 4 Mg/2 Ml Vial) 4 mg IV Q6HP PRN PRN Reason: Nausea And Vomiting Senna (Sennosides 1 Tablet) 2 tab PO HS [facility] Last Admin: 05/16/21 21:40 Dose: 2 tab Documented by: Sodium Chloride (0.9 % Sodium Chloride 10 Ml Syringe) 10 ml IV Q8 [facility] Last Admin: 05/17/21 05:57 Dose: Not Given Documented by: Vancomycin HCl (Vancomycin Per Pharmacy) 1 order IV UD [facility]; Protocol A/P Narrative A/P Narrative: Patient seen and examined this am. resting comfortably but arousable and cooperative, conversive eager for discharge. has some expected pot op pain but feels it is well managed. Dressing at LLE clean dry and intact both lower extremities are warm ,well perfused and neuro intact. he is WB as tolerated PT/OT Stable from orthopedic standpoint will defer to attending hospitalist for final dispo Plan is for expected discharge today w/ follow up at [facility] in 10-14 days Time Spent With Patient Time: Total time spent is greater than 50% in coordination of care (as documented) at patient's floor/unit and/or counseling patient:
--- NOTE | 2021-05-17 07:10 | EKG ---
[facility] Test Date: 2021-05-16 Pat Name: Maged Bennett Department: [facility] Room: 126 Gender: Male Putter In: : 1970 Requested By: Rivas Painting Order Number: [id number] Reading MD: Charles Araujo Measurements Intervals [place] Rate: 81 P: 36 SD: 127 QRS: 31 QRSD: 128 T: 5 QT: 388 QTc: 451 Interpretive Statements Sinus rhythm Right bundle branch block Baseline wander in lead(s) V1,V3 Electronically Signed On 05-17-2021 7:09:50 PST by Charles Araujo /store/[email or web address]/[id number]
[2021-05-17] MEDS ORDERED: 0.9 % SODIUM CHLORIDE 10 ML SYRINGE IV PRN (08:49)
[2021-05-17] MEDS: ENOXAPARIN 40 MG/0.4 ML SYRINGE SQ SCH (08:55)
[2021-05-17] MEDS: cefTRIAXone 2 GM in DEXTROSE 5% IN WATER 50 ML IV SCH (08:55)
[2021-05-17] MEDS: DOCUSATE SODIUM 100 MG CAPSULE PO SCH ×2 (08:56→21:01)
[2021-05-17] MEDS: VANCOMYCIN 1,500 MG in 0.9 % SODIUM CHLORIDE 500 ML IV SCH ×2 (12:17→21:05)
--- NOTE | 2021-05-17 12:41 | Internal Med Progress Note ---
SUBJECTIVE Subjective Patient information: Note initiated : 05/17/21 at 12:37 pm Service Date, if different from initiated Date: [] Patient: Maged Bennett 51 y/o M admitted on 05/15/21 for left calf pain. Chief Complaint: [] Principal diagnosis: s/p arthroscopic assisted I+D knee infection, I+D left calf abscess Interval history: Mr. Bennett is a 51 year old male with a history of psoriasis treated with Ixekizumab injections who presented to the ED for left calf pain. The patient says that he has been having redness and edema in his left calf for about 4 weeks. He has recently been on a course of Keflex which does not seem to have made any difference. The patient has been seen for this complaint in urgent care and the emergency department. In the ED, the patient had an aspiration of his left knee for which there were 13,838 nucleated cells with 89% neutrophils. The patient was also found to have a left calf fluid collection that was drained by radiology. The patient presented to the emergency department, the impression was that it was a hematoma in the medial calf overlying the medial gastrocnemius muscle. The patient was given vancomycin and Zosyn in the emergency department. Hospital medicine was consulted for admission. 05/16 Stable overnight, plan for today is for I&D of the calf fluid collection, likely abscess. 05/17 Orthopedic surgery feels the patient does have septic arthritis as well as a calf abscess after taking the patient to surgery yesterday. Blood cultures showing no growth to date, PICC line ordered. Surgical cultures are not growing any organisms and may not grow any organisms as the patient was taking Keflex and Bactrim prior to admission. Discussed with ID tele consult in [place], recommended empiric IV Vancomycin and Ceftriaxone for 4 weeks if cultured do not grow any organisms. Physical exam Head: Atraumatic, normal inspection. Eyes: normal appearance, no scleral icterus. Neck: full ROM Respiratory: no respiratory distress. Cardiovascular: normal rate and rhythm, S1, S2. GI/Abdominal: soft, nontender, no guarding. Extremities: Left calf and knee covered with clean bandages. Neurological: CN II-XII intact, intact motor, intact sensation. Psychiatric: normal mood. Constitutional Vitals: Vital Signs Temp Pulse Resp BP Pulse Ox 97.4 F 77 20 130/85 95 05/17/21 08:00 05/17/21 08:00 05/17/21 08:00 05/17/21 08:00 05/17/21 08:00 Period Temp Pulse Resp BP Sys/Lopez Pulse Ox Last 24 Hr 97.3 F-98.6 F 76-116 14-25 112-160/63-101 89-100 Intake and Output 05/16/21 05/17/21 05/17/21 21:59 05:59 13:59 Intake Total 800 600 Output Total 700 550 600 Balance 100 50 -600 Weight 96.026 kg 96.026 kg Patient Weight 05/18/21 05:59 Weight 96.026 kg Intake & Output: Intake & Output 05/16/21 05/17/21 05/17/21 21:59 05:59 13:59 Intake Total 800 600 Output Total 700 550 600 Balance 100 50 -600 Weight 96.026 kg 96.026 kg Intake: IV 500 Vancomycin 1,500 mg In Sodium 500 Chloride 0.9% 500 ml @ 333.3 mls/hr IV Q12H [facility] Rx#: [id number] Oral 100 IV - Manual Only 800 Output: Void Amount 650 550 600 Estimated Blood Loss 50 Other: Urine Appearance Clear Clear Clear Urine Color Bright Yellow Bright Yellow Bright Yellow Urine Odor Normal Normal OBJ DATA Labs CBC & Chem 7: 05/16/21 05:19 05/16/21 05:19 Labs: Abnormal Lab Results 05/16/21 05/16/21 05/15/21 05:19 05:19 15:31 WBC RBC 4.38 L 4.39 L Hgb 12.3 L 12.6 L Hct 39.3 L 38.9 L Lymphocytes % 13 L ESR Glucose 120 H Calcium C-Reactive Protein Albumin 3.1 L Globulin 4.7 H Albumin/Globulin Ratio 0.7 L Synovial Neutrophils 05/15/21 05/14/21 05/14/21 15:26 18:19 18:06 WBC RBC Hgb Hct Lymphocytes % ESR 79 H Glucose Calcium 8.5 L C-Reactive Protein Albumin Globulin 4.7 H Albumin/Globulin Ratio 0.7 L Synovial Neutrophils 89 H 05/14/21 05/14/21 18:06 18:06 WBC 12.2 H RBC Hgb 13.3 L Hct Lymphocytes % 14 L ESR Glucose Calcium C-Reactive Protein 13.20 H Albumin Globulin Albumin/Globulin Ratio Synovial Neutrophils Meds: Medications Acetaminophen (Acetaminophen 325 Mg Tablet) 650 mg PO Q6HP PRN; Protocol PRN Reason: Per Pain Protocol/Fever > 101 Last Admin: 05/16/21 18:48 Dose: 650 mg Documented by: Hydrocodone Bitart/Acetaminophen (Hydrocodone/Apap 5/325mg Tablet) 1 tab PO Q4HP PRN; Protocol PRN Reason: Per Pain Protocol Last Admin: 05/16/21 21:41 Dose: 1 tab Documented by: Docusate Sodium (Docusate Sodium 100 Mg Capsule) 100 mg PO BID [facility] Last Admin: 05/17/21 08:56 Dose: Not Given Documented by: Enoxaparin Sodium (Enoxaparin 40 Mg/0.4 Ml Syringe) 40 mg SQ DAILY [facility] Last Admin: 05/17/21 08:55 Dose: 40 mg Documented by: Heparin Sodium (Porcine) (Heparin Flush 10 Units/Ml 5 Ml Syringe) 2 ml IV Q12 [facility] Last Admin: 05/17/21 12:23 Dose: Not Given Documented by: Hydromorphone HCl (Hydromorphone 0.5 Mg/0.5 Ml Syringe) 0.5 mg IV Q4HP PRN; Protocol PRN Reason: Per Pain Protocol Ceftriaxone Sodium 2 gm/ (Dextrose) 50 mls @ 100 mls/hr IV DAILY [facility]; Protocol Last Admin: 05/17/21 08:55 Dose: 100 mls/hr Documented by: Vancomycin HCl 1,500 mg/ (Sodium Chloride) 500 mls @ 333.3 mls/hr IV Q12H [facility] Last Admin: 05/17/21 12:17 Dose: 333 mls/hr Documented by: Ondansetron HCl (Ondansetron 4 Mg/2 Ml Vial) 4 mg IV Q6HP PRN PRN Reason: Nausea And Vomiting Senna (Sennosides 1 Tablet) 2 tab PO HS [facility] Last Admin: 05/16/21 21:40 Dose: 2 tab Documented by: Sodium Chloride (0.9 % Sodium Chloride 10 Ml Syringe) 10 ml IV Q8 [facility] Last Admin: 05/17/21 05:57 Dose: Not Given Documented by: Sodium Chloride (0.9 % Sodium Chloride 10 Ml Syringe) 10 ml IV UD PRN PRN Reason: FLUSH Sodium Chloride (0.9 % Sodium Chloride 10 Ml Syringe) 10 ml IV Q12 [facility] Last Admin: 05/17/21 12:23 Dose: Not Given Documented by: Vancomycin HCl (Vancomycin Per Pharmacy) 1 order IV UD [facility]; Protocol A/P Narrative A/P Narrative: Assessment: 51-year-old male with a history of psoriasis treated with Ixekizumab injections admitted for left calf cellulitis, left calf hematoma possibly infected. The patient also had left knee pain for which an arthrocentesis was performed, cell count was 13,838 with 89% neutrophils. #Left knee septic arthritis #Left calf abscess s/p I&D #Psoriasis treated with Ixekizumab #Obesity BMI 33 Plan -Vancomycin and ceftriaxone, if cultures do not grow any organisms then will treat with this combination for 4 weeks via PICC. -Analgesics prn. -Follow knee, left calf fluid collection aspiration and blood cultures. -PICC line. -Orthopedic surgery following. -Hold Ixekizumab until the patient completes IV antibiotics. -Regular diet. 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
--- NOTE | 2021-05-17 15:30 | XRay Report ---
CLINICAL INFORMATION: PICC line placement COMPARISON: 09/09/2020 TECHNIQUE: Portable FINDINGS: The heart size, mediastinum and pulmonary vessels are unremarkable. The lungs are clear. Right PICC line tip overlies the SVC right atrial junction in satisfactory position. There are no effusions. The bones and soft tissues are within normal limits. IMPRESSION: Right PICC line in satisfactory position. No acute cardiopulmonary disease. Interpreted and Authenticated by: David Hunt 05/17/21
[2021-05-17] MEDS: SENNOSIDES 1 TABLET PO SCH (21:02)
[2021-05-17] MEDS: HYDROcodone/APAP 5/325MG TABLET PO PRN (21:12)
[2021-05-18] MEDS: DOCUSATE SODIUM 100 MG CAPSULE PO SCH (08:00)
[2021-05-18] MEDS: cefTRIAXone 2 GM in DEXTROSE 5% IN WATER 50 ML IV SCH (08:20)
[2021-05-18] MEDS: ENOXAPARIN 40 MG/0.4 ML SYRINGE SQ SCH (08:24)
[2021-05-18] MEDS: 0.9 % SODIUM CHLORIDE 10 ML SYRINGE IV SCH (08:24)
[2021-05-18] MEDS: VANCOMYCIN 1,500 MG in 0.9 % SODIUM CHLORIDE 500 ML IV SCH (08:57)
[2021-05-18] MEDS ORDERED: DAPTOmycin 500 MG VIAL IV SCH ×2 (11:00)
--- NOTE | 2021-05-18 15:57 | Discharge Summary ---
Discharge Provider Provider Patient information: Note initiated : 05/18/21 at 3:55 pm Service Date, if different from initiated Date: [] Patient: Maged Bennett 51 y/o M admitted on 05/15/21 for left calf pain. Chief Complaint: [] Date of admission: 05/15/21 15:15 Discharge date: 05/18/21 Primary care physician: Hawa Seymour PA-C Consults: 05/15/21 Consult to Physician [CONS] Stat Comment: Consulting Provider: Tre Maria Reason For Exam: Physician to Consult 05/15/21 15:13 Consult to Physician [CONS] Routine Comment: Consulting Provider: David Tobar Reason For Exam: Physician to Consult Discharge Meds Discharge Medications Home Medications naproxen 500 mg tablet 500 mg PO Q12H PRN #30 tab 04/25/21 [Rx Confirmed 05/15/21 Last Taken Unknown] aspirin 81 mg tablet,delayed release (Aspirin Low Dose) 81 mg PO BID #30 tab 05/16/21 [Rx Last Taken Unknown] hydrocodone 10 mg-acetaminophen 325 mg tablet 1 - 2 tab PO Q4H PRN #60 tab 05/16/21 [Rx Last Taken Unknown] acetaminophen 325 mg tablet (Tylenol) 650 mg PO Q6HP PRN #30 tab 05/18/21 [Rx Last Taken Unknown] ceftriaxone 2 gram intravenous solution 2 g IV Q24H 28 Days #28 ea 05/18/21 [Rx Last Taken Unknown] daptomycin 500 mg intravenous solution (Cubicin RF) 750 mg IV Q24@0900 28 Days #28 ea 05/18/21 [Rx Last Taken Unknown] COURSE Hospital Course Hospital course: Mr. Bennett is a 51 year old male with a history of psoriasis treated with Ixekizumab injections who presented to the ED for left calf pain. The patient says that he has been having redness and edema in his left calf for about 4 weeks. He has recently been on a course of Keflex which does not seem to have made any difference. The patient has been seen for this complaint in urgent care and the emergency department. In the ED, the patient had an aspiration of his left knee for which there were 13,838 nucleated cells with 89% neutrophils. The patient was also found to have a left calf fluid collection that was drained by radiology. The patient presented to the emergency department, the impression was that it was a hematoma in the medial calf overlying the medial gastrocnemius muscle. The patient was given vancomycin and Zosyn in the emergency department. Hospital medicine was consulted for admission. 05/16 Stable overnight, plan for today is for I&D of the calf fluid collection, likely abscess. 05/17 Orthopedic surgery feels the patient does have septic arthritis as well as a calf abscess after taking the patient to surgery yesterday. Blood cultures showing no growth to date, PICC line ordered. Surgical cultures are not growing any organisms and may not grow any organisms as the patient was taking Keflex and Bactrim prior to admission. Discussed with ID tele consult in [place], recommended empiric IV antibiotics for 4 weeks if cultured do not grow any organisms. 05/18 Blood showing no growth to date, surgical cultures showing no growth to date. PICC line placed, plan is for daptomycin and ceftriaxone IV via PICC line for 4 weeks. Weekly CBC, CMP, CRP, CK ordered. Follow-up with PCP and orthopedic surgery, monitor weekly labs. Discussed holding Ixekizumab until completing IV antibiotic treatment with the patient. Physical exam Head: Atraumatic, normal inspection. Eyes: normal appearance, no scleral icterus. Neck: full ROM Respiratory: no respiratory distress. Cardiovascular: normal rate and rhythm, S1, S2. GI/Abdominal: soft, nontender, no guarding. Extremities: Left calf and knee covered with clean bandages. Neurological: CN II-XII intact, intact motor, intact sensation. Psychiatric: normal mood. Discharge diagnosis: Septic arthritis of left knee Secondary discharge diagnosis: Abscess of left calf Time Spent with Patient Time attestation: Total time spent providing and/or coordinating discharge services: EXAM Constitutional Vitals: Temp Pulse Resp BP Pulse Ox 97.7 F 81 18 141/76 94 05/18/21 11:03 05/18/21 11:03 05/18/21 11:03 05/18/21 11:03 05/18/21 11:03 Discharge Data Data Completed and Pending Labs on day of discharge: Preliminary micro results at discharge 05/15/21 15:31 Blood Culture - Preliminary Blood 05/15/21 15:26 Blood Culture - Preliminary Blood Discharge Plan Patient/Caregiver Discharge Instructions Activity: as per physical therapy Diet: Regular Diet Prescriptions: New aspirin [Aspirin Low Dose] 81 mg Tablet,Delayed Release (Dr/Ec) 81 mg PO BID Qty: 30 0RF hydrocodone-acetaminophen 10-325 mg Tablet 1 - 2 tab PO Q4H PRN (Reason: Pain) Qty: 60 0RF acetaminophen [Tylenol] 325 mg Tablet 650 mg PO Q6HP PRN (Reason: Per Pain Protocol/Fever > 101) Qty: 30 0RF daptomycin [Cubicin RF] 500 mg Recon Soln 750 mg IV Q24@0900 28 Days Qty: 28 0RF ceftriaxone 2 gram recon soln 2 g IV Q24H 28 Days Qty: 28 0RF Continued naproxen 500 mg tablet 500 mg PO Q12H PRN (Reason: pain) Qty: 30 0RF Rx Instructions: administer with food or milk Discontinued Taltz Autoinjector 80 mg/mL auto-injector subcut 0RF cephalexin 500 mg capsule 500 mg PO Q6H Qty: 28 0RF Other Ambulatory Orders: Complete Blood Count (WEEKLY) Timeframe: [id number] Facility: [facility] - Location: Laboratory Ordered By: Tre Maria Complete Blood Count (WEEKLY) Timeframe: [id number] Facility: [facility] - Location: Laboratory Ordered By: Tre Maria Complete Blood Count (WEEKLY) Timeframe: [id number] Facility: [facility] - Location: Laboratory Ordered By: Tre Maria Complete Blood Count (WEEKLY) Timeframe: [id number] Facility: [facility] - Location: Laboratory Ordered By: Tre Maria Creatine Kinase (WEEKLY) Timeframe: [id number] Facility: [facility] - Location: Laboratory Ordered By: Tre Maria Creatine Kinase (WEEKLY) Timeframe: [id number] Facility: [facility] - Location: Laboratory Ordered By: Tre Ficek Creatine Kinase (WEEKLY) Timeframe: [id number] Facility: [facility] - Location: Laboratory Ordered By: Tre Ficmoar Creatine Kinase (WEEKLY) Timeframe: [id number] Facility: [facility] - Location: Laboratory Ordered By: Tre Maria Comprehensive Metabolic Panel (WEEKLY) Timeframe: [id number] Facility: [facility] - Location: Laboratory Ordered By: Tre Ficek Comprehensive Metabolic Panel (WEEKLY) Timeframe: [id number] Facility: [facility] - Location: Laboratory Ordered By: Tre Ficomar Comprehensive Metabolic Panel (WEEKLY) Timeframe: [id number] Facility: [facility] - Location: Laboratory Ordered By: Tre Maria Comprehensive Metabolic Panel (WEEKLY) Timeframe: [id number] Facility: [facility] - Location: Laboratory Ordered By: Tre Maria C-Reactive Protein (WEEKLY) Timeframe: [id number] Facility: [facility] - Location: Laboratory Ordered By: Tre Maria C-Reactive Protein (WEEKLY) Timeframe: [id number] Facility: [facility] - Location: Laboratory Ordered By: Tre Maria C-Reactive Protein (WEEKLY) Timeframe: [id number] Facility: [facility] - Location: Laboratory Ordered By: Tre Maria C-Reactive Protein (WEEKLY) Timeframe: [id number] Facility: [facility] - Location: Laboratory Ordered By: Tre Maria Follow Up Plan Follow up with: Hawa Seymour PA-C [Primary Care Provider] - David Tobar MD [Physician] - Patient Disposition: Home, Self-Care Prognosis: Fair Rehab Potential: Good I certify that the patient requires SNF services: No Overall status at discharge: patient is progressing back to baseline Discharge Orders: Discharge Order (Routine); Ordered 05/18/21 Ordered By: Tre Maria Discharge Comment: cc: knee and calf infection s/p i and d QUALITY VTE Deep Vein Thrombosis/Pulmonary Embolism Present on Admission: No
== END 2021-05-18 18:35 | disposition home or self-care (01) | DRG 486 ==
LOC: ED 17:34 → MEDSUR 05-15 14:15
PROVIDERS: ADMIT Orthopaedic Surgery Sports Medicine; ATTEND Internal Medicine